=== PATIENT | male | born 2000 | race American Indian/Alaskan Native ===

== ENCOUNTER 2019-04-26 22:08 | Emergency (ER) | payer SELFPAY ==
[2019-04-26 22:22] VITALS: BP 134/83
== END 2019-04-27 02:30 | disposition left against medical advice (07) ==
LOC: ED 22:08
DX: H57.12 Ocular pain, left eye (principal); Z53.21 Procedure and treatment not carried out due to patient leaving prior to being seen by health care provider

== ENCOUNTER 2021-06-01 22:02 | Emergency (ER) | payer SELFPAY ==
--- NOTE | 2021-06-02 02:07 | Emergency Department Report ---
ED General Adult HPI - General Chief complaint: Abdominal Pain Stated complaint: CHEST/STOMACH PAIN Time Seen by Provider: 06/02/21 02:00 Source: patient Mode of arrival: Ambulatory Limitations: No Limitations - History of Present Illness Initial comments: Patient presents secondary to chest pain and abdominal pain associated with swallowing. For the last couple of weeks he has noticed that he has chest pain, epigastric pain, and back pain when he swallows. This is regardless of what he eats or drinks. There is no fever associated with this. Has no trauma. He has no difficulty swallowing. Patient has had no choking episode. He has never had symptoms like this before. He has not taken anything as of yet for the discomfort. Patient denies any trouble breathing. There have been no sick contacts. Has no pain or swelling in the legs. There is no other symptomatologies. - Related Data Previous Rx's Medication Instructions Recorded Last Taken Type Sucralfate [Carafate] 1 gm PO ACHS #40 ud[facility] 06/02/21 Unknown Rx Allergies Allergy/AdvReac Type Severity Reaction Status Date / Time No Known Allergies Allergy Verified 04/26/19 22:14 ED Review of Systems ROS: Stated complaint: CHEST/STOMACH PAIN Other details as noted in HPI Comment: All other systems reviewed and negative Constitutional: denies: fever Eyes: denies: eye discharge ENT: denies: throat pain Respiratory: denies: cough Cardiovascular: as per HPI Endocrine: denies: unexplained weight loss Gastrointestinal: as per HPI Genitourinary: denies: dysuria Musculoskeletal: as per HPI Skin: denies: rash Neurological: denies: headache Hematological/Lymphatic: denies: easy bruising ED Past Medical Hx - Past Medical History Previous Medical History?: No - Surgical History Past Surgical History?: No - Family History Family history: no significant - Social History Smoking Status: Current Every Day Smoker (We discussed tobacco cessation x3 min utes) Substance Use Type: None - Medications Home Medications: Home Medications Medication Instructions Recorded Confirmed Last Taken Type Sucralfate [Carafate] 1 gm PO ACHS #40 udc 06/02/21 Unknown Rx ED Physical Exam - General Limitations: No Limitations, Other (Pulse ox noted and normal) General appearance: alert, in no apparent distress - Head Head exam: Present: atraumatic, normocephalic - Eye Eye exam: Present: normal appearance, EOMI. Absent: scleral icterus - ENT ENT exam: Present: normal orophraynx, normal external ear exam - Neck Neck exam: Present: normal inspection. Absent: meningismus - Respiratory Respiratory exam: Present: normal lung sounds bilaterally. Absent: respiratory distress - Cardiovascular Cardiovascular Exam: Present: regular rate, normal rhythm - GI/Abdominal GI/Abdominal exam: Present: soft. Absent: distended, tenderness - Extremities Exam Extremities exam: Present: normal capillary refill - Back Exam Back exam: Absent: CVA tenderness (R), CVA tenderness (L) - Neurological Exam Neurological exam: Present: alert, oriented X3, CN II-XII intact. Absent: motor sensory deficit - Psychiatric Psychiatric exam: Present: normal affect, normal mood - Skin Skin exam: Present: warm, dry ED Course Vital Signs 06/02/21 01:47 Temperature 97.7 F Pulse Rate 65 Respiratory 18 Rate Blood Pressure 125/81 O2 Sat by Pulse 98 Oximetry - Reevaluation(s) Reevaluation #1: 06/02/21 02:05 Chest x-ray was ordered. Old records noted. Reevaluation #2: 06/02/21 02:52 X-ray was noted and the patient was discharged ED Medical Decision Making - Radiology Data Radiology results: report reviewed - Medical Decision Making Patient presents with chest and back pain associate with epigastric pain and swallowing. I suspect that this is likely to be esophagitis or reflux. He certainly does not have radiographic evidence of pneumonia or pneumothorax. He does not have a wide mediastinum or pulse deficit to suggest aortic section. Patient has no risk factor for ACS or PE. There is no trauma associated with this. He has not had any hemoptysis or hematemesis that would suggest any type of [place] or tear of other natures. Critical Care Time: No Critical care attestation.: If time is entered above; I have spent that time in minutes in the direct care of this critically ill patient, excluding procedure time. ED Disposition Clinical Impression: Substernal chest pain, Acute epigastric pain Thoracic back pain Qualifiers: Chronicity: acute Back pain laterality: midline Qualified Code(s): M54.6 - Pain in thoracic spine Disposition: HOME / SELF CARE / HOMELESS Is pt being admited?: No Condition: Stable Instructions: Nonspecific Chest Pain, Adult, Pain Without a Known Cause Additional Instructions: Have a bland diet. Drink plenty water. Avoid caffeine. Return for problems. Follow-up with your doctor or the referral doctor for recheck. Prescriptions: Sucralfate [Carafate] 1 gm PO ACHS #40 [facility] [place] Referrals: PRIMARY CARE, [Referring] - 3-5 Days JOSELINE KELLOGG MD [Staff Physician] - 3-5 Days
--- NOTE | 2021-06-02 02:46 | XRay Report ---
CHEST 2 VIEWS INDICATION / CLINICAL INFORMATION: cp. COMPARISON: None available. FINDINGS: SUPPORT DEVICES: None. HEART / MEDIASTINUM: No significant abnormality. LUNGS / PLEURA: No significant pulmonary or pleural abnormality. No pneumothorax. ADDITIONAL FINDINGS: Mild dextroscoliosis of the lower thoracic spine apex centered at T10. IMPRESSION: 1. No active cardiopulmonary disease. Signer Name: Bladimir Cabral II, MD Signed: 06/02/2021 2:42 AM Workstation Name: [id number]
[2021-06-02] MEDS ORDERED: ALUM-MAG HYDROXIDE-SIMETHICONE 200-200-20MG/5ML ORAL LIQD 30 ML PO ONE (02:51)
[2021-06-02 03:35] VITALS: BP 126/66
== END 2021-06-02 03:36 | disposition home or self-care (01) ==
LOC: ED 22:02
DX: R07.2 Precordial pain (principal); R10.13 Epigastric pain; F17.200 Nicotine dependence, unspecified, uncomplicated; Z79.899 Other long term (current) drug therapy
CPT/HCPCS: 71046; 99283